=== PATIENT | female | born 1940 | race Two or more races ===

== ENCOUNTER 2019-02-03 12:44 | Day surgery (SDC) | payer MEDICARE ==
--- NOTE | 2019-02-02 17:05 | HP ---
HISTORY AND PHYSICAL DATE OF SURGERY: 02/03/2019 Iliana Salazar is a 78-year-old patient seen with a displaced right ankle trimalleolar fracture. I recommended open reduction, internal fixation. The procedure, risks, complications, benefits, recovery were discussed. She was agreeable. Consent was obtained. PAST MEDICAL HISTORY: Noncontributory. PAST SURGICAL HISTORY: Cataract surgery, section. DAILY MEDICATIONS: Tylenol. ALLERGIES: ERYTHROMYCIN and MORPHINE. SOCIAL HISTORY: She denies current tobacco use. PHYSICAL EVALUATION: There is moderate swelling about the ankle. Tenderness along the medial and lateral malleolus. She is able to move her toes with no pain. There are good perfusion and sensation distally. Homans and Cristopher are negative. RADIOGRAPHS: Radiographs of the right ankle revealed a displaced trimalleolar fracture. IMPRESSION: Right ankle displaced trimalleolar fracture. PLAN: Open reduction, internal fixation, right ankle trimalleolar fracture. MMODL / IJN: [id number] /
[~2019-02-03 12:44] MED LIST: DEXAMETHASONE SOD PHOSPHATE 10 MG/ML 1 ML VIAL IV ONE; HYDROmorphone 0.5 MG/0.5 ML SYRINGE IVP PRN; ONDANSETRON 4 MG/2 ML VIAL IVP ONE
[2019-02-03] MEDS ORDERED: LIDOCAINE 1% 20 ML VIAL (10MG/ML) FOR IV START INTRADERMA ONE (13:50)
[2019-02-03] MEDS: LACTATED RINGERS 1,000 ML IV SCH (13:50)
[2019-02-03] MEDS ORDERED: diphenhydrAMINE 50 MG/ML 1 ML VIAL IVP ONE (14:05)
[2019-02-03 14:12] LABS: Basophils % (A) 0 %; Eosinophils % (A) 1 %; HCT 39.6 % (34.0-46.0); HGB 12.6 gm/dL (11.4-16.0); Lymphocytes # (A) 1.1 k/uL (1.0-4.8); Lymphocytes % (A) 19 %; MCH 31.5 pg (25.0-35.0); MCHC 31.9 g/dL (31.0-37.0); MCV 98.9 fL (80.0-100.0); Mean Platelet Volume 6.8; Monocytes # (A) 0.3 k/uL (0-1.0); Monocytes % (A) 5 %; Neutrophils # (A) 4.4 k/uL (1.3-7.7); Neutrophils % (A) 74 %; Platelet Count 248 k/uL (150-450); RBC 4.01 m/uL (3.80-5.40); RDW 14.1 % (11.5-15.5); WBC 5.9 k/uL (3.8-10.6)
[2019-02-03 14:22] LABS: African American GFR (CKD) >90 (>60 ml/min/1.73 sqM); Anion Gap 10 mmol/L; Blood Urea Nitrogen 12 mg/dL (7-17); Calcium 9.5 mg/dL (8.4-10.2); Carbon Dioxide 24 mmol/L (22-30); Chloride 106 mmol/L (98-107); Glucose 96 mg/dL (74-99); Potassium 4.4 mmol/L (3.5-5.1); Sodium 140 mmol/L (137-145)
[2019-02-03] MEDS ORDERED: MIDAZOLAM (PF) 2 MG/2 ML VIAL IVP ONE (15:15)
[2019-02-03] MEDS ORDERED: LIDOCAINE 1% INJ 10MG/ML (20 ML MDV) ONE (15:47)
[2019-02-03] MEDS ORDERED: ROPIVACAINE 5 MG/ML 30 ML VIAL ONE (15:47)
[2019-02-03] MEDS ORDERED: fentaNYL (PF) 50 MCG/ML 2 ML AMP ONE (15:47)
[2019-02-03] MEDS ORDERED: PROPOFOL 10 MG/ML 20 ML VIAL IV ONE (15:47)
[2019-02-03] MEDS ORDERED: MIDAZOLAM 2 MG/2 ML VIAL ONE (15:47)
[2019-02-03] MEDS ORDERED: LABETALOL 5 MG/ML VIAL MDV ONE (15:47)
[2019-02-03] MEDS ORDERED: ceFAZolin 1,000 MG in SODIUM CHLORIDE 0.9% 1,000 ML IRRIGATION ONE (16:16)
[2019-02-03] MEDS ORDERED: LACTATED RINGERS 1,000 ML IV ONE (16:16)
[2019-02-03] MEDS ORDERED: NALOXONE 0.4 MG/ML 1 ML VIAL IV PRN (17:37)
[2019-02-03] MEDS ORDERED: traMADol 50 MG TAB PO PRN (17:37)
[2019-02-03] MEDS ORDERED: HYDROmorphone 0.5 MG/0.5 ML SYRINGE IVP PRN (17:37)
[2019-02-03] MEDS ORDERED: ONDANSETRON 4 MG/2 ML VIAL IVP PRN (17:37)
[2019-02-03] MEDS ORDERED: ACETAMINOPHEN TAB 325 MG TAB PO PRN (17:37)
[2019-02-03] MEDS ORDERED: KETOROLAC 30 MG/ML 1 ML VIAL IVP PRN (17:41)
--- NOTE | 2019-02-03 17:47 | P.OP ---
Date of Procedure: 02/03/19 Preoperative Diagnosis: Displaced right ankle trimalleolar fracture Postoperative Diagnosis: Displaced comminuted right ankle trimalleolar fracture Procedure(s) Performed: Open reduction and internal fixation right ankle trimalleolar fracture Implants: Synthes 6 hole one third semitubular plate with 6 appropriate length screws and 44.0 cannulated screws Anesthesia: GETA, regional (Popliteal block) Surgeon: Darci Dong Under Seal Operator #1: Harrison Munroe Estimated Blood Loss (ml): 15 Pathology: none sent Condition: stable Disposition: PACU Indications for Procedure: 70-year-old patient seen with displaced right ankle trimalleolar fracture. I recommended open reduction internal fixation. I reviewed the procedure, risks, complications and recovery. Patient was agreeable and consent was obtained. Operative Findings: See description of procedure Description of Procedure: Patient underwent a popliteal block by the department of anesthesia for postoperative analgesia. The patient was taken to the operative suite and underwent a general anesthetic by the department of anesthesia. The patient received preoperative IV antibiotics. A well-padded tourniquet placed proximal right thigh. Right lower extremity prepped and draped in the normal sterile orthopedic fashion. The extremity was elevated and tourniquet insufflated to 300. A lateral incision was made over the anterior lateral malleolus. Dissection was taken down to the fracture site. There was a comminuted lateral malleolar fracture with displacement. Monroe LYNN assisted with retraction I reduced the fracture and secured it with a bone reduction clamp. I now placed a appropriate molded 6 hole one third semitubular plate in position. I now began drilling through the appropriate holes and inserting appropriate length screws. The screw cemented result purchase as the bone was quite osteoporotic. The bone clamp was now removed. There appeared be good stability of the fracture site with good positioning of the internal fixation. C-arm was brought in confirming that. I now made an incision over the medial malleolus. Dissection was taken down to the area of the fracture. This fracture was very comminuted and displaced. I was able to approximate the fragments reasonably. I inserted 2 K wires. C-arm confirmed adequate alignment. I depth gauged over the K wires inserted appropriate length 4.0 mm cannulated screws. The screws had good bite and purchase. C-arm brought back into the operative field confirming adequate positioning of the fracture and fixation. We now brought the C-arm back into the operative field evaluating her posterior malleolar fracture. It appeared involved greater than 25% of the articular surface. All Gi LYNN held the ankle in neutral dorsiflexion which help bring the fracture in reasonable alignment I made 2 small gi holes anterior through the skin and dissected bluntly to the anterior distal tibia. I now inserted 2 K w ires crossing the posterior malleolar fracture. I now introduced to appropriate length 4.0 mm cannulated screws over guidewires with good purchase noted. The guidewires removed. We appeared to adequate capturing of that posterior malleolar fragment. We now evaluated the construct under AP and lateral as well as oblique intraoperative imaging noting yarsanism of the mortise and good adequate alignment of the fractures and fixation. Spot films were obtained to document that. The wounds were all irrigated with saline antibiotic solution. The subcu soft tissues were repaired 2-0 Vicryl. The skin incisions were proximal skin luzma. Sterile dressings were applied. The tourniquet was released with immediate capillary refill the entire foot noted. The patient's ankle was now placed into a modified bulky Castillo splint with ankle in neutral position. The patient was awakened, transferred to a bed and recovery stable condition. Gi LYNN assisted with the procedure.
[2019-02-03] MEDS ORDERED: ROPIVACAINE 5 MG/ML 30 ML VIAL MISCELLANE ONE (17:50)
[2019-02-03] MEDS ORDERED: LIDOCAINE 2% (PF) 20 MG/ML 2 ML VIAL MISCELLANE ONE (17:50)
[2019-02-03 19:26] VITALS: BMI 21.7
[2019-02-03] MEDS: ASPIRIN 325 MG TAB PO SCH (20:58)
--- NOTE | 2019-02-03 21:20 | P.ANPRN ---
Procedure Note - Anesthesia - Nerve Block Performed Right Popliteal Single Time Out Performed: Yes (1525) Date of Procedure: 02/03/19 Procedure Start Time: 15:25 Procedure Stop Time: 15:35 Location of Patient Procedure: PreOp Indication: Acute Post-Operative Pain, Dx/Pain Location, Requested by physician Specifically requested for management of pain by DrBreanna: Darci Dong Sedation Type: Sedate with meaningful contact maintained Position: Left Lateral Catheter: None Needle Types: Pajunk Needle Gauge: 21 Technique: Ultrasound Injectate: 0.5% Ropivacaine (see comment for volume) (20ml) Blood Aspirated: No Pain Paresthesia on Injection Noted: No Resistance on Injection: Normal Events: Uneventful and Well Tolerated
--- NOTE | 2019-02-03 21:21 | P.ANPRN ---
Procedure Note - Anesthesia - Nerve Block Performed Right Adductor Canal Single Time Out Performed: Yes Date of Procedure: 02/03/19 Procedure Start Time: 17:55 Procedure Stop Time: 17:59 Location of Patient Procedure: PACU Indication: Acute Post-Operative Pain, Dx/Pain Location, Requested by physician Specifically requested for management of pain by : Darci Dong Sedation Type: Sedate with meaningful contact maintained Position: Supine Needle Types: Pajunk Needle Gauge: 21 Technique: Ultrasound Injectate: 0.5% Ropivacaine (see comment for volume) (15ml) Blood Aspirated: No Pain Paresthesia on Injection Noted: No Resistance on Injection: Normal Events: Uneventful and Well Tolerated
[2019-02-04] MEDS: LACTATED RINGERS 1,000 ML IV SCH (05:14)
[2019-02-04 07:27] VITALS: BP 126/78; PULSE 93; RESP 16; TEMP 97.7
[2019-02-04] MEDS: ASPIRIN 325 MG TAB PO SCH (08:02)
--- NOTE | 2019-02-04 11:58 | FL ---
Fluoroscopy HISTORY: Open reduction internal fixation 1.1 minutes fluoroscopy time supplied to the referring clinician. 3 intraoperative C-arm images docu ment the procedure. See dictated report from orthopedic surgery.
--- NOTE | 2019-02-04 11:58 | XR ---
Limited right ankle HISTORY: Open reduction internal fixation 3 intraoperative C-arm images document the procedure.
--- NOTE | 2019-02-04 12:52 | P.PN ---
Subjective Progress Note Date: 02/04/19 Principal diagnosis: Status post ORIF right trimalleolar ankle fracture Patient evaluated bedside, her is present. Patient is doing very well at this time, pain is well-controlled. He denies any chest pain or shortness of breath. Objective - Vital Signs Vital signs: Vital Signs Temp 97.7 F 02/04/19 06:55 Pulse 93 02/04/19 06:55 Resp 16 02/04/19 06:55 BP 126/78 02/04/19 06:55 Pulse Ox 96 02/04/19 06:55 Intake & Output 02/03/19 02/04/19 02/04/19 18:59 06:59 18:59 Intake Total 1651 500 Output Total 15 Balance 1636 500 Intake: IV 1651 Oral 500 Output: Estimated Blood Loss 15 Other: # Voids 1 - Exam Right lower extremity: Postop splint is in good position and condition. Skin is warm to touch both proximal distal to the splint. Patient's sensation to light touch both proximal and distal to the splint are intact - Labs CBC & Chem 7: 02/03/19 13:50 02/03/19 13:50 Labs: Abnormal Lab Results - Last 24 Hours (Table) 02/03/19 Range/Units 13:50 Creatinine 0.49 L (0.52-1.04) mg/dL Assessment and Plan Plan: assessment: Postoperative day 1 status post ORIF right trimalleolar ankle fracture Plan: Pain control, we'll discharge home on Tylenol and tramadol GI and DVT prophylaxis, aspirin 81 mg twice a day Activity instructions are discussed the patient, she'll be nonweightbearing Plan for [facility] Time with Patient: Less than 30
--- NOTE | 2019-02-04 12:58 | P.DS ---
Providers Date of admission: 02/03/2019 Expected date of discharge: 02/04/19 Attending physician: Darci Dong Primary care physician: Wilmar Aguila MD Hospital Course: Date of admission: 02/03/2019 Date of discharge: 02/04/2019 Admission diagnosis: Status post ORIF right ankle trimalleolar fracture Discharge diagnosis: Same Attending physician: Dr. Dong Surgical procedures: ORIF right ankle trimalleolar fracture Brief history: Patient is a 78-year-old female who was initially evaluated in the outpatient setting with a right ankle injury. It was determined she had a displaced trimalleolar fracture. She was scheduled for surgery with Dr. Dong on 02/04/2019. Hospital course: Details of patient's surgery can be found in operative report. Patient tolerated the procedure well and was subsequently transported to orthopedic floor. Patient's orthopeidc and medical care was provided daily. Patient had daily laboratory tests performed for evaluation of overall blood counts. Patient had daily physical therapy to include strengthening range of motion as well as education with walker ambulation. Patient was treated with aspirin for their postoperative DVT prophylaxis during their inpatient stay. Patient was noted to have a relatively uneventful postoperative course. Patient reported satisfactory pain control with oral pain medications by postoperative day 0. Patient showed satisfactory progress with physical therapy. Patient moved steadily through the program and had no difficulty meeting the goals by postoperative day 1. Given patient's otherwise satisfactory course and having met physical therapy goals, plan is to discharge patient [home] on postoperative day 1. Discharge condition/disposition: Patient will be discharged [home] in stable condition. Discharge medications: Instructions are given on resumption of patient's normal daily medications per primary care recommendation, in addition patient will be prescribed aspirin 81 mg, tramadol 100 mg, Tylenol 650 mg. Discharge instructions: 1. Pain medication as needed 2. Aspirin 81 mg twice a day for DVT prophylaxis 3. Keep splint covered and dry, keep covered while showering 4. Nonweightbearing right lower extremity, elevate often 5. [facility] 2 weeks Procedures: Open reduction internal fixation right ankle trimalleolar fracture Patient Condition at Discharge: Good Plan - Discharge Summary Discharge Rx Participant: Yes New Discharge Prescriptions: New Aspirin [Adult Low Dose Aspirin EC] 81 mg PO BID #60 tablet. Acetaminophen Tab [Tylenol Tab] 650 mg PO Q6H PRN #30 tablet PRN Reason: Pain traMADol HCl [Ultram] 50 mg PO Q6H PRN #28 tab PRN Reason: Pain No Action Acetaminophen [Tylenol Extra Strength] 250 mg PO Q6H PRN PRN Reason: Pain Discharge Medication List Acetaminophen [Tylenol Extra Strength] 250 mg PO Q6H PRN 02/02/19 [History] Acetaminophen Tab [Tylenol Tab] 650 mg PO Q6H PRN #30 tablet 02/04/19 [Rx] Aspirin [Adult Low Dose Aspirin EC] 81 mg PO BID #60 tablet.dr 02/04/19 [Rx] traMADol HCl [Ultram] 50 mg PO Q6H PRN #28 tab 02/04/19 [Rx] Follow up Appointment(s)/Referral(s): Harrison Munroe PAC [PHYSICIAN MULTI PUNCH OPERATOR] - 2 Weeks Activity/Diet/Wound Care/Special Instructions: Orthopedic discharge instructions: 1. Pain medication as needed 2. Aspirin 81 mg twice a day for DVT prophylaxis 3. Keep cast clean and dry, do not remove, keep covered while showering 4. Nonweightbearing right lower extremity 5. [facility]-up at [facility] 2 weeks Discharge Disposition: HOME SELF-CARE
--- NOTE | 2019-02-08 13:07 | CDI ---
Outpatient Documentation Clarification Form Date: 02/08/19 CDS/Zigzagger Name: Digna Briceño Phone: If any questions, call Becky Charles Table Cover Folder at [phone] Patient Name: Iliana Salazar Admit Date: 02/03/19 Discharge Date: 02/04/19 ATTENTION: The [facility] Coding Staff appreciate your assistance in clarifying documentation. Please respond to the clarification below the line at the bottom and electronically sign. The [facility] Coding staff will review the response and follow-up if needed. Please note: Queries are made part of the Legal Health Record. If you have any questions, please contact the Table Cover Folder. Dear Dr. Dong, Please provide clarification as to the cause of the displaced fracture. The operative report nor the H&P document the cause of the fracture. Yet on the operative report it is mentioned that the bone the screws were inserted into was quite osteoporotic. In order to conform to the coding guidelines and code to the most specificity, please clarify. Thank you for your kind consideration. the ankle injury was caused by a slip and fall MTDD
== END 2019-02-04 16:01 | disposition home or self-care (01) ==
LOC: OR 12:44 → EDSTATUS 14:20 → 4SSUR 18:52 → OR 02-04 16:01
PROVIDERS: ATTEND Orthopaedic Surgery
DX: S82.851A Displaced trimalleolar fracture of right lower leg, initial encounter for closed fracture (principal); Z79.899 Other long term (current) drug therapy; Z88.1 Allergy status to other antibiotic agents; Z88.5 Allergy status to narcotic agent; J45.909 Unspecified asthma, uncomplicated; Z91.041 Radiographic dye allergy status
CPT/HCPCS: 27822; 97116; 97161; 80048; 85025; 73610; C1713; J2250 ×2; J1200; J1100; J2405; J0690 ×2; J2001 ×2; J3010; J2795; J2704

== ENCOUNTER → 2022-06-09 | Outpatient (CLI) | payer MEDICARE ==
[2022-06-09 22:57] LABS: Basophils # (A) 0.03 X 10*3/uL (0.00-0.10); Basophils % (A) 0.7 %; Eosinophils # (A) 0.03 X 10*3/uL (0.04-0.35); Eosinophils % (A) 0.7 %; HCT 38.9 % (37.2-46.3); HGB 12.8 g/dL (12.0-15.0); Immature Grans, Automated 0.2 %; Lymphocytes # (A) 1.62 X 10*3/uL (0.90-5.00); Lymphocytes % (A) 37.2 %; MCH 32.8 pg (27.0-32.0); MCHC 32.9 g/dL (32.0-37.0); MCV 99.7 fL (80.0-97.0); Monocytes # (A) 0.35 X 10*3/uL (0.20-1.00); NRBC Per 100 WBC 0 /100 WBCS (0.0-0.0); Neutrophils # (A) 2.32 X 10*3/uL (1.80-7.70); Neutrophils % (A) 53.2 %; Platelet Count 239 X 10*3/uL (140-440); RDW 13.1 % (11.5-14.5); WBC 4.36 X 10*3/uL (4.50-10.00)
[2022-06-09 23:13] LABS: Anion Gap 8.7 mmol/L (10.00-18.00); Carbon Dioxide 25.3 mmol/L (20.0-27.5); Potassium 4.5 mmol/L (3.5-5.5)
== END | disposition home or self-care (01) ==
LOC: LABPAT 14:34
PROVIDERS: ATTEND Orthopaedic Surgery
DX: Z01.812 Encounter for preprocedural laboratory examination (principal); T84.89XA Other specified complication of internal orthopedic prosthetic devices, implants and grafts, initial encounter; Y82.9 Unspecified medical devices associated with adverse incidents
CPT/HCPCS: 80051; 85025; 93005

== ENCOUNTER 2022-06-18 09:29 | Day surgery (SDC) | payer MEDICARE ==
--- NOTE | 2022-06-18 07:20 | HP ---
HISTORY AND PHYSICAL DATE OF SURGERY: 06/18/2022. HISTORY OF PRESENT ILLNESS: Iliana Salazar is an 82-year-old patient seen with irritating hardware involving the lateral right ankle. We discussed removal of her irritating hardware. She was agreeable. Consent was obtained. PAST MEDICAL HISTORY: Asthma. PAST SURGICAL HISTORY: section, ankle ORIF, cataract surgery. DAILY MEDICATIONS: Tylenol as needed. ALLERGIES: None reported. SOCIAL HISTORY: Denies tobacco use. PHYSICAL EVALUATION OF THE RIGHT ANKLE: She has a well-healed lateral incision. There is prominence of lateral hardware and tenderness over the lateral hardware site. Her range of motion is slightly limited with no pain. Her distal neurovascular exam is intact. RADIOGRAPHS: Radiographs of the right ankle revealed a well-healed fracture with stable-appearing hardware. IMPRESSION: Irritating internal fixation of right ankle-lateral hardware site. PLAN: Removal of irritating internal fixation, right ankle-lateral hardware site. MMODL / IJN: [id number] /
[~2022-06-18 09:29] MED LIST changes: -DEXAMETHASONE SOD PHOSPHATE 10 MG/ML 1 ML VIAL IV ONE; +DEXAMETHASONE SOD PHOSPHATE 4 MG/ML 1 ML VIAL IV ONE; +LACTATED RINGERS 1,000 ML IV SCH
[2022-06-18] MEDS ORDERED: LIDOCAINE 1% (10MG/ML) FOR IV START SQ ONE ×2 (10:37)
[2022-06-18] MEDS ORDERED: PROPOFOL 10 MG/ML 20 ML VIAL IV ONE (11:54)
[2022-06-18] MEDS ORDERED: LIDOCAINE 2% INJ 20 MG/ML (2 ML VIAL) ONE (11:54)
[2022-06-18] MEDS ORDERED: fentaNYL (PF) 50 MCG/ML 2 ML AMP ONE (11:54)
[2022-06-18] MEDS ORDERED: SODIUM CHLORIDE 0.9% 50 ML with ceFAZolin 1 GM IV ONE ×2 (11:59)
[2022-06-18] MEDS ORDERED: BUPIVACAINE (PF) 0.25% 30 ML VIAL SQ ONE (12:21)
[2022-06-18] MEDS ORDERED: LACTATED RINGERS 1,000 ML IV ONE (12:32)
--- NOTE | 2022-06-18 12:32 | P.OP ---
Date of Procedure: 06/18/22 Preoperative Diagnosis: Irritating internal fixation lateral hardware right ankle Postoperative Diagnosis: Irritating internal fixation lateral hardware right ankle Procedure(s) Performed: Removal irritating hardware right ankle Anesthesia: JOVANNI, local Surgeon: Darci Dong Therapeutic Assistant #1: Harrison Munroe Estimated Blood Loss (ml): 5 Pathology: none sent Condition: stable Disposition: PACU Indications for Procedure: 82-year-old patient seen with irritating lateral hardware of the right ankle. We discussed options. She elected to proceed with removal irritating hardware. Operative Findings: See description of procedure Description of Procedure: Patient was taken to the operative suite. She underwent a general anesthetic by the department of anesthesia. She received preoperative IV antibiotics. Well- padded tourniquet was placed proximal right thigh. The right lower extremity was prepped and draped in the normal sterile orthopedic fashion. We elevated the extremity and selected a tourniquet to 270. An incision was made along the lateral aspect of the ankle along the previous cicatrix. We dissected down to the hardware. The hardware was obviously very prominent. I was able to remove the 6 screws and the plate laterally without difficulty. I irrigated the wound out copiously. The subcu soft tissues were now approximated with Vicryl. The skin was repaired with a running subcuticular suture augmented with skin glue. We infiltrated the subcu soft tissues with quarter percent plain Marcaine for postoperative pain management. Sterile dressings were applied followed by sterile web roll and an Vic bandage. The tourniquet was now deflated with immediate capillary refill noted of all digits. The patient was now awakened and transferred to recovery in stable condition having tolerated the procedure well.
[2022-06-18 13:13] VITALS: TEMP 96.8
[2022-06-18 13:38] VITALS: RESP 18
[2022-06-18] MEDS ORDERED: Acetaminophen-Codeine 300-30mg TAB ONE (13:47)
[2022-06-18] MEDS ORDERED: Acetaminophen-Codeine 300-30mg TAB PO ONE (13:48)
[2022-06-18 13:54] VITALS: BP 145/88; PULSE 73
== END 2022-06-18 14:17 | disposition home or self-care (01) ==
LOC: OR 09:29
PROVIDERS: ATTEND Orthopaedic Surgery
DX: T84.89XA Other specified complication of internal orthopedic prosthetic devices, implants and grafts, initial encounter (principal); J45.909 Unspecified asthma, uncomplicated; Z79.899 Other long term (current) drug therapy; Z98.891 History of uterine scar from previous surgery; Z98.49 Cataract extraction status, unspecified eye; Z98.890 Other specified postprocedural states
CPT/HCPCS: 20680; J1100; J0690; J2405; J3010; J2704; J2001